=== PATIENT | male | born 1930 | race Two or more races ===

== ENCOUNTER 2017-01-09 15:04 | Inpatient (IN) | payer MEDICARE, BC ==
[~2017-01-09] VITALS: Ht 182.9 cm; Wt 83.1 kg
[~2017-01-09 15:04] MED LIST: HYDR-3326 PO; MAG355OR18 PO; METO25TA20 PO; ONDA4TAB5 PO; PANT40TA2 PO; SIMV5TAB2 GT; TYL2T GT; WARF1TAB47 GT; ZOLP5TAB2 PO
--- NOTE | 2017-01-09 15:08 | NUR ---
ALLY RONDON FROM [facility] C/O FEVER COUGH CONGESTION X 4 HOURS PATIENT REGISTRATION SUPERVISOR. PATIENT ALTERED, A/OX 1. TACHYPNIC, DIAPHORETIC, COOL TO TOUCH, FEVERE 104.3 RECTALLY. HYPOTENSIVE. NEW IV STARTED ON LAC, 18 G AND RFA, 18 G. BLOOD DRAWN AND SENT TO LAB. WILL CONTINUE TO MONITOR.
--- NOTE | 2017-01-09 15:30 | NUR ---
RT AT [facility] FOR SUCTION
[2017-01-09 15:34] LABS: BASOPHILS # (AUTO) 0.1 /CMM (0.0-0.2); BASOPHILS % (AUTO) 0.4 % (0.0-2.0); EOSINOPHILS % (AUTO) 0.1 % (0.0-6.0); HEMATOCRIT 48 % (39-51); HEMOGLOBIN 15.9 g/dL (13.5-17.5); LYMPHOCYTES # (AUTO) 0.5 /CMM (0.8-4.8); MEAN CORPUSCULAR HEMOGLOBIN 31 PG (26.0-33.0); MEAN CORPUSCULAR HGB CONC 33 g/dl (31.0-36.0); MEAN CORPUSCULAR VOLUME 91 fL (80-96); MONOCYTES # (AUTO) 0.7 /CMM (0.1-1.30); MONOCYTES % (AUTO) 5.2 % (2.0-12.0); NEUTROPHILS % (AUTO) 90.3 % (43.0-81.0); PLATELET COUNT (AUTO) 166 /CMM (150-450); RDW COEFFICIENT OF VARIATION 16.9 (11.5-15.0); RED BLOOD CELL COUNT(AUTO) 5.23 MIL/uL (4.5-6.0); WHITE BLOOD COUNT (AUTO) 13.3 K/uL (4.3-11.0)
[2017-01-09 15:48] LABS: INR 3.37 (0.87-1.13)
[2017-01-09] MEDS ORDERED: THIA100T13 GT (15:48)
[2017-01-09] MEDS ORDERED: MAG30ORA GT (15:48)
[2017-01-09] MEDS ORDERED: CIPR-262 PO (15:48)
[2017-01-09] MEDS ORDERED: LEVO100T9 PO (15:48)
[2017-01-09] MEDS ORDERED: SODI1TAB3 GT (15:48)
[2017-01-09] MEDS ORDERED: PANT40SU2 GT (15:48)
[2017-01-09] MEDS ORDERED: ACID1TAB12 GT (15:48)
[2017-01-09] MEDS ORDERED: AMIN30LI4 GT (15:48)
[2017-01-09] MEDS ORDERED: MAGN400O6 GT (15:48)
[2017-01-09] MEDS ORDERED: MEMA10TA GT (15:48)
[2017-01-09] MEDS ORDERED: MELA3TAB GT (15:48)
[2017-01-09] MEDS ORDERED: GUAI100S11 GT (15:48)
[2017-01-09] MEDS ORDERED: DILT30TA2 GT (15:48)
[2017-01-09] MEDS ORDERED: LOPE2CAP40 GT (15:48)
[2017-01-09] MEDS ORDERED: LACT-96 GT (15:48)
[2017-01-09] MEDS ORDERED: METO25TA20 GT (15:48)
[2017-01-09] MEDS ORDERED: CALC-108 GT (15:48)
[2017-01-09 15:50] LABS: ALANINE AMINOTRANSFERASE 20 U/L (12-78); ALBUMIN 2.4 g/dL (3.4-5.0); ALKALINE PHOSPHATASE 127 U/L (46-116); ASPARTATE AMINOTRANSFERASE 25 U/L (15-37); BILIRUBIN,DIRECT 0.7 mg/dL (0.0-0.2); BILIRUBIN,TOTAL 1.6 mg/dL (0.2-1.0); CALCIUM, SERUM 9.7 mg/dL (8.5-10.1); CARBON DIOXIDE 26 mmol/L (21-32); CHLORIDE 103 mmol/L (98-107); CREATININE 3.9 mg/dL (0.6-1.3); GLUCOSE 84 mg/dL (74-106); POTASSIUM 5.2 mmol/L (3.5-5.1); SODIUM SERUM 138 mmol/L (136-145); TOTAL PROTEIN, SERUM 7.6 g/dL (6.4-8.2)
[2017-01-09 15:52] LABS: TROPONIN I 0.186 ng/mL (0.00-0.056)
[2017-01-09 15:53] LABS: UREA NITROGEN, BLOOD 104 mg/dL (7-18)
--- NOTE | 2017-01-09 15:58 | NUR ---
PODIATRIST ASSISTANT AT BEDSIDE.
[2017-01-09] MEDS ORDERED: IV NS 0.9% 1,000 ML BAG IV ONE ×2 (16:00→17:00)
[2017-01-09] MEDS ORDERED: LEVOFLOXACIN 750 MG /D5W 150ML 150 ML IV ONE (16:30)
[2017-01-09] MEDS ORDERED: PIPERACILLIN /TAZOBACTAM 3.375 G in IV D5W 50 ML IV ONE (16:30)
[2017-01-09] MEDS ORDERED: ACETAMINOPHEN 650 MG/SUPP.RECT RC ONE ×2 (16:33→17:00)
--- NOTE | 2017-01-09 16:59 | NUR ---
CALLED PATIENTS DAUGHTER ON THE PHONE WITH DR YOUSSEF.
[2017-01-09] MEDS ORDERED: NOREPINEPHRINE 8 MG in IV D5W 500 ML IV ONE (17:00)
--- NOTE | 2017-01-09 17:45 | NUR ---
REPORT GIVEN TO EUNICE MORE FOR AQUILES UPON ADMISSION.
--- NOTE | 2017-01-09 18:05 | NUR ---
PATIENT TRANSPORTED TO [facility], 115-2 VIA ACLS PROTOCOL. RNEUNICE TO PROVIDE AQUILES.
--- NOTE | 2017-01-09 18:10 | NUR ---
RN [facility] INITIAL NOTE PATIENT PRESENT TO [facility] ON ER BED, TRANSFERRED SAFELY TO [facility] BED , PATIENT PLACED ON TELE MONITORING , READING A-FIB, PATIENT CURRENTLY ON 5L NASAL CANULA SATURATING AT 96% INITIAL VITALS TAKEN AND WITHIN NORMAL LIMITS PER CHARGE NURSE INITIAL INTAKE ASSESSMENT WILL BE PERFORMED BY PM RN , RN ORIENTED PATIENT AND FAMILY TO THE ROOM PATIENT APPEARS NON RESPONSIVE WITH SOUND HOWEVER PATIENT OPENS EYES TO TOUCH AND IS WITNESSED COUGHING WITHOUT SPUTUM. PATIENT IN BED B/P SLIGHTLY LOWER THAN EXPECTED HOWEVER PATIENT CURRENTLY HAS NO ORDERS , ADMITTING MD IS SERA PRAJAPATI , PM RN WILL FOLLOWUP ON DISCHARGE ORDERS PATIENT VITAL SIGNS ARE FOLLOWS : B/P 86/57 HR:102 O2: 97 ON 5 L NC TEMP 97.4 PATIENT HAS [address] CURRENTLY LEFT 18G AC AND RIGHT 18G FORE ARM , CLEAN DRY AND INTACT PATIENT IN BED RESTING COMFORTABLY WITH COUGHING NOTED PARTNER AT BEDSIDE
--- NOTE | 2017-01-09 19:50 | NUR ---
RN [facility] INITIAL NOTE PATIENT IN BED RESTING COMFORTABLY WITH COUGHING NOTED PARTNER AT BEDSIDE HOWEVER PATIENT CURRENTLY HAS NO ORDERS , ADMITTING MD IS SERA PRAJAPATI , PM RN WILL FOLLOWUP ON DISCHARGE ORDERS CONTINUATION OF CARE ENDORED TO PM RN PATIENT VITAL SIGNS ARE FOLLOWS : ALL LEVELS ENDORSED TO PM RN ALONG WITRH REPEAT LACTIC ACID AT 2.4 B/P 86/57 HR:102 O2: 97 ON 5 L NC TEMP 97.4 PATIENT HAS [address] CURRENTLY LEFT 18G AC AND RIGHT 18G FORE ARM , CLEAN DRY AND INTACT Addendum: 01/09/17 at 1951 by NAYELI RM RN CLOSING RN NOTE STATED ABOVE
[2017-01-09 20:00] VITALS: BP 122/46
[2017-01-09 20:11] LABS: D-DIMER 8.74 mg/L(FEU (0.17-0.50)
--- NOTE | 2017-01-09 20:30 | NUR ---
SOCK AND STOCKING IRONER DF PT RECEIVED TO ROOM 115-2 A NEW ADMIT FROM ER ADMITTED FOR SEPSIS.UTI,PNA. PT HAS HX OF DEMENTIA RESPONDS TO VERBAL/TACTILE,CONFUSED.(PER PT,S PARTNER AT BEDSIDE PT HAS SEVERE DEMENTIA UNABLE TO RECOGNIZE FAMILY MEMBERS AND NO LONGER ORIENTED TO SELF. VSS. PER PT,S PARTNER AND DPOA ON FILE DOCUMENTED BY ER MD YOUSSEF THEY HAVE ELECTED TO HAVE NO VASOPRESSOR SUPPORT TO SUPPORT BP ABOVE 90. PT CURRENTLY NORMOTENSIVE AT 122/46, AFIB CONTROLLED ON MONITOR. PT RECEIVED WITH NO ADMISSION ORDERS. I WAS INFORMED IN REPORT RUPA PRAJAPATI WILL ADMIT PT. RUPA PRAJAPATI INFORMED ME TO CALL DR ALEXIA RASMUSSEN . I SPOKE WITH DR HALE WHO HAS ATTEMPTED TO CONTACT DR You BRANCH. INSTRUCTED TO WAIT FOR JOSE CARLOS PÉREZ TO CALL BACK WITHIN 30 MINS. AWAITING CALL BACK.
[2017-01-09] MEDS: IV NS 0.9% 1,000 ML BAG IV PRN (21:00)
[2017-01-09] MEDS ORDERED: Medication Not On Formulary EA (Melatonin 3 MG) GT PRN (21:30)
[2017-01-09] MEDS ORDERED: MAG HYDROX/AL HYDROX/SIMETH 30 ML UDC GT PRN (21:30)
[2017-01-09] MEDS ORDERED: GUAIFENESIN 300 MG/15 ML UDC GT PRN (21:30)
[2017-01-09] MEDS ORDERED: MAGNESIUM HYDROXIDE 30 ML UDC GT PRN (21:30)
[2017-01-10] VITALS: BP 104/40
[2017-01-10 04:00] VITALS: BP 100/61
[2017-01-10] MEDS: IV NS 0.9% 1,000 ML BAG IV PRN ×2 (05:03→12:40)
--- NOTE | 2017-01-10 07:10 | NUR ---
RN NOTES RECEIVED PATIENT NON VERBAL , RESPONSIVE TO VERBAL STIMULI , DOESN'T FOLLOWS COMMANDS , NOT I NACUTE DISTRESS , RESPIRATIONS EVEN AND UNLABORED SPO2 OF 100% VIA 2LPM NC , AFIB 85 ON ASSOCIATE DIRECTOR DATA & ANALYTICS , GT PATENT AND INTACT CLAMPED WITH ABDOMINAL BINDER , FC DRAINING WELL VIA GRAVITY WITH LINDA COLORED URINE WITH SEDIMENTS , IV OF L AC # 18 PATENT AND INTAC WITH NS @ 125ML/HR INFUSING WELL , RFA # 20 PATENT AND INTACT SL , ALL NEEDS ATTENDED , BED ON LOW AND LOCKED POSITION , SIDE RAILS X2 ,CALL LIGHT WITHIN REACH , WILL CONTINUE TO MONITOR
[2017-01-10] MEDS ORDERED: ACETAMINOPHEN 650 MG/20.3 ML UDC GT PRN (07:30)
[2017-01-10] MEDS ORDERED: FIBERSOURCE HN 1,000 ML BOTTLE GT PRN (07:30)
[2017-01-10 07:32] LABS: HEMATOCRIT 42 % (39-51); HEMOGLOBIN 13.8 g/dL (13.5-17.5); LYMPHOCYTES # (AUTO) 1.5 /CMM (0.8-4.8); MEAN CORPUSCULAR HEMOGLOBIN 31 PG (26.0-33.0); MEAN CORPUSCULAR HGB CONC 33 g/dl (31.0-36.0); MEAN CORPUSCULAR VOLUME 94 fL (80-96); MONOCYTES # (AUTO) 0.9 /CMM (0.1-1.30); MONOCYTES % (AUTO) 4.9 % (2.0-12.0); NEUTROPHILS # (AUTO) 16.2 /CMM (1.8-8.9); NEUTROPHILS % (AUTO) 87.1 % (43.0-81.0); PLATELET COUNT (AUTO) 121 /CMM (150-450); RDW COEFFICIENT OF VARIATION 18.3 (11.5-15.0); RED BLOOD CELL COUNT(AUTO) 4.49 MIL/uL (4.5-6.0); WHITE BLOOD COUNT (AUTO) 18.6 K/uL (4.3-11.0)
[2017-01-10 07:40] LABS: TROPONIN I 0.148 ng/mL (0.00-0.056)
[2017-01-10 07:44] LABS: CALCIUM, SERUM 8.5 mg/dL (8.5-10.1); CARBON DIOXIDE 27 mmol/L (21-32); CHLORIDE 108 mmol/L (98-107); CREATININE 3.4 mg/dL (0.6-1.3); GLUCOSE 83 mg/dL (74-106); MAGNESIUM 2.3 mg/dL (1.8-2.4); PHOSPHORUS 3.9 mg/dL (2.5-4.9); SODIUM SERUM 142 mmol/L (136-145)
[2017-01-10 07:46] LABS: UREA NITROGEN, BLOOD 104 mg/dL (7-18)
[2017-01-10 07:50] LABS: POTASSIUM 6.2 mmol/L (3.5-5.1)
[2017-01-10 08:00] VITALS: BP 120/60
[2017-01-10] MEDS ORDERED: CIPROFLOXACIN HCL 500 MG TABLET GT SCH (09:00)
[2017-01-10] MEDS ORDERED: LOPERAMIDE HCL UDC(2 MG/10 ML) 2 MG/10 ML UDC GT PRN (09:00)
[2017-01-10] MEDS: PROSOURCE / PROSTAT (PYXIS) 30 ML UDC GT SCH ×2 (09:00→16:37)
[2017-01-10] MEDS: SODIUM CHLORIDE 1000 MG TABLET.SOL GT SCH ×3 (10:06→17:04)
[2017-01-10] MEDS: MEMANTINE HCL 5 MG TABLET GT SCH ×2 (10:06→16:57)
[2017-01-10] MEDS: ACIDOPHILUS/BULGARICUS 1 EACH TAB.CHEW GT SCH (10:06)
[2017-01-10] MEDS: CALCIUM CARB 250MG /VITAMIN D 1 UDTAB GT SCH (10:07)
[2017-01-10] MEDS: LEVOTHYROXINE SODIUM 100 MCG TABLET GT SCH (10:07)
[2017-01-10] MEDS: DILTIAZEM HCL 30 MG TABLET GT SCH ×3 (10:09→16:57)
[2017-01-10] MEDS: PANTOPRAZOLE 40 MG/PACK PACK GT SCH (10:09)
[2017-01-10] MEDS: THIAMINE HCL 100 MG TABLET GT SCH (10:10)
--- NOTE | 2017-01-10 10:25 | NUR ---
RN NOTES PROSTAT HELD DUE TO ELEVATED BUN (104) , WILL RESTART FEEDING OF FIBERSOURCE @65ML/HR X 24 HOURS PER DIETITIAN ,
[2017-01-10] MEDS: FIBERSOURCE HN 1,000 ML BOTTLE GT PRN (11:00)
[2017-01-10 11:11] LABS: INR 3.94 (0.87-1.13); PROTHROMBIN TIME 41.5 SECS (9.5-12.7)
[2017-01-10] MEDS ORDERED: SODIUM POLYSTYRENE SULFONATE 15 G/60 ML BOTTLE PO ONE (11:30)
--- NOTE | 2017-01-10 11:30 | NUR ---
RN NOTES SPOKE WITH DR BRANCH , DISCUSSED LABS , CURRENTLY ON IVF OF NS @ 125ML/HR , VERIFIED IF HE WANTS TO RESTART GT FEEDING OF FIBERSOURCE @ 65ML/HR PER DIETARY , PER MD START FEEDING PT , NOTIFIED PROSTAT WAS HELD DUE TO ELEVATED BUN , LACTIC OF 3.1 , AFEBRILE , V/S PHILIP , AWARE
[2017-01-10] MEDS ORDERED: FEE PK DOSING 1 MIN EA MC ONE (11:39)
[2017-01-10 12:00] VITALS: BP 114/66
[2017-01-10] MEDS ORDERED: VANCOMYCIN 1 GM in IV D5W 250 ML IV ONE (12:00)
[2017-01-10] MEDS: IV NS 0.9% 1,000 ML IV PRN ×2 (12:30→23:21)
[2017-01-10] MEDS: PIPERACILLIN /TAZOBACTAM 2.25 G in IV D5W 50 ML IV SCH ×3 (12:37→23:16)
--- NOTE | 2017-01-10 15:46 | NUR ---
RN NOTES NOTIFIED DR BRANCH REGARDING GASTRIC TUBE LEAK , NOTED WITH MODERATE AMOUNT OF FEEDING AROUND THE STOMACH , HELD GT FEEDING , AWAITING FOR ORDERS
[2017-01-10 16:00] VITALS: BP 146/65
--- NOTE | 2017-01-10 17:04 | NUR ---
RN NOTES SPOKE WITH PHARMACIST NOTIFIED REGARDING WRONG DOSE OF SODIUM CHLORIDE POWDER (1MG ) , PER PHARMACIST THEY WILL FIX THE RIGHT DOSING
--- NOTE | 2017-01-10 18:55 | NUR ---
RN NOTES SPOKE WITH ALFREDO , DISCUSSED LABS , PT STABLE , AFEBRILE BP WNL , NOTED WITH WATERY STOOL , S/P KAYEXELATE , PER OJSEPH SENT STOOL FOR C DIFF , VERIFIED THE ORDER PT RECEIVED KAYEXALETE PER COACH DRIVER STILL SEND IT , VERIFIED ALSO IF SHE WANTS TO DC THE OLD FC FROM THE FACILITY AND REPLACE WITH A NEW ONE , PER COACH DRIVER INSERT NEW FC . ORDERS CARRIED OUT
--- NOTE | 2017-01-10 19:05 | NUR ---
RN NOTE SPOKE WITH RITA GI WATER SANDER , DISCUSSED THAT PT HAS GT SITE LEAK , FLUIDS LEAKING LOOKS LIKE GASTRIC TUBE FEEDING , GT FEEDING HELD , PER WATER SANDER SHE WILL TAKE A LOOK AT IT
[2017-01-10 20:00] VITALS: BP 113/64
--- NOTE | 2017-01-10 20:34 | NUR ---
RN MS INITIAL NOTES RECEIVED PATIENT NON VERBAL , RESPONSIVE TO VERBAL STIMULI , DOESN'T FOLLOWS COMMANDS , NO SOB , RESPIRATIONS EVEN AND UNLABORED SPO2 OF 100% VIA 2LPM NC , GT PATENT AND INTACT CLAMPED WITH ABDOMINAL BINDER , FC DRAINING WELL VIA GRAVITY WITH LINDA COLORED URINE WITH SEDIMENTS , IV OF L AC # 18 PATENT AND INTACT WITH NS @ 125ML/HR INFUSING WELL , RFA # 20 PATENT AND INTACT SL , ALL NEEDS ATTENDED , BED ON LOW AND LOCKED POSITION , SIDE RAILS X2 ,CALL LIGHT WITHIN REACH , WILL CONTINUE TO MONITOR
[2017-01-10] MEDS: SIMVASTATIN 10 MG TABLET GT SCH (22:51)
[2017-01-11] VITALS: BP 123/64
[2017-01-11] MEDS: PIPERACILLIN /TAZOBACTAM 2.25 G in IV D5W 50 ML IV SCH ×3 (05:40→18:51)
[2017-01-11] MEDS ORDERED: VANCOMYCIN 500 MG in IV D5W 100 ML IV PRN (06:00)
--- NOTE | 2017-01-11 07:04 | NUR ---
RN MS CLOSING NOTES ENDORSED PATIENT NON VERBAL , RESPONSIVE TO VERBAL STIMULI , DOESN'T FOLLOWS COMMANDS , NO SOB , RESPIRATIONS EVEN AND UNLABORED SPO2 OF 100% VIA 2LPM NC , GTF RESUMED, WELL NESHA NO RESIDUAL , FC DRAINING WELL VIA GRAVITY WITH LINDA COLORED URINE WITH SEDIMENTS , IV OF L AC # 18 PATENT AND INTACT WITH NS @ 125ML/HR INFUSING WELL , RFA # 20 PATENT AND INTACT SL , ALL NEEDS ATTENDED , BED ON LOW AND LOCKED POSITION , SIDE RAILS X2 ,CALL LIGHT WITHIN REACH , WILL CONTINUE TO MONITOR.
[2017-01-11 07:18] LABS: BASOPHILS % (AUTO) 0.1 % (0.0-2.0); EOSINOPHILS # (AUTO) 0.3 /CMM (0.0-0.7); EOSINOPHILS % (AUTO) 2.2 % (0.0-6.0); HEMATOCRIT 42 % (39-51); HEMOGLOBIN 13.5 g/dL (13.5-17.5); LYMPHOCYTES # (AUTO) 0.6 /CMM (0.8-4.8); LYMPHOCYTES % (AUTO) 4.6 % (20.0-44.0); MEAN CORPUSCULAR HEMOGLOBIN 30 PG (26.0-33.0); MEAN CORPUSCULAR HGB CONC 33 g/dl (31.0-36.0); MEAN CORPUSCULAR VOLUME 94 fL (80-96); MONOCYTES # (AUTO) 0.7 /CMM (0.1-1.30); MONOCYTES % (AUTO) 5.1 % (2.0-12.0); NEUTROPHILS # (AUTO) 12.3 /CMM (1.8-8.9); PLATELET COUNT (AUTO) 106 /CMM (150-450); RDW COEFFICIENT OF VARIATION 18.5 (11.5-15.0); RED BLOOD CELL COUNT(AUTO) 4.46 MIL/uL (4.5-6.0); WHITE BLOOD COUNT (AUTO) 13.9 K/uL (4.3-11.0)
[2017-01-11 07:54] LABS: CALCIUM, SERUM 8.9 mg/dL (8.5-10.1); CARBON DIOXIDE 26 mmol/L (21-32); CHLORIDE 114 mmol/L (98-107); GLUCOSE 106 mg/dL (74-106); MAGNESIUM 2.3 mg/dL (1.8-2.4); POTASSIUM 4.3 mmol/L (3.5-5.1); SODIUM SERUM 151 mmol/L (136-145)
[2017-01-11 07:55] LABS: UREA NITROGEN, BLOOD 100 mg/dL (7-18)
[2017-01-11 08:00] VITALS: BP 129/94
[2017-01-11] MEDS: LEVOTHYROXINE SODIUM 100 MCG TABLET GT SCH (09:41)
[2017-01-11] MEDS: ACIDOPHILUS/BULGARICUS 1 EACH TAB.CHEW GT SCH (09:41)
[2017-01-11] MEDS: SODIUM CHLORIDE 1000 MG TABLET.SOL GT SCH ×3 (09:41→17:00)
[2017-01-11] MEDS: CALCIUM CARB 250MG /VITAMIN D 1 UDTAB GT SCH (09:42)
[2017-01-11] MEDS: THIAMINE HCL 100 MG TABLET GT SCH (09:42)
[2017-01-11] MEDS: PROSOURCE / PROSTAT (PYXIS) 30 ML UDC GT SCH ×2 (09:42→17:00)
[2017-01-11] MEDS: PANTOPRAZOLE 40 MG/PACK PACK GT SCH (09:42)
[2017-01-11] MEDS: DILTIAZEM HCL 30 MG TABLET GT SCH ×3 (09:42→18:49)
[2017-01-11] MEDS: MEMANTINE HCL 5 MG TABLET GT SCH ×2 (09:42→18:49)
[2017-01-11] MEDS: IV D5W 1,000 ML IV PRN (12:40)
[2017-01-11 16:00] VITALS: BP 131/76
[2017-01-11] MEDS ORDERED: Z GUARD REMEDY 2 OZ OINT TP PRN (17:30)
--- NOTE | 2017-01-11 19:00 | NUR ---
RN NOTE PT REMAINED STABLE DURING THE DAY SHIFT, ALL NEEDS MET, MEDS GIVEN ORDERED, ORAL SUCTION PERFORMED SEVERAL TIME THROUGHOUT THE SHIFT. SAFETY MEASURES IMPLEMENTED, KEPT CLEAN AND DRY. WILL ENDORSE TO MEDICAL LIAISON FOR AQUILES.
[2017-01-11 20:00] VITALS: BP 138/68
[2017-01-11] MEDS: SIMVASTATIN 10 MG TABLET GT SCH (21:50)
[2017-01-12] MEDS: PIPERACILLIN /TAZOBACTAM 2.25 G in IV D5W 50 ML IV SCH ×5 (00:06→23:23)
[2017-01-12] MEDS: IV D5W 1,000 ML IV PRN ×2 (00:26→15:21)
[2017-01-12 04:00] VITALS: BP 151/99
[2017-01-12] MEDS: FIBERSOURCE HN 1,000 ML BOTTLE GT PRN ×2 (06:32→23:27)
--- NOTE | 2017-01-12 06:45 | NUR ---
WAREHOUSE SUPERVISOR 3RD SHIFT -PT.ON O2/3L/NC. PT. HAD BUCKLE COVERER COURSE CONGESTED COUGH. CANNOT SX W/ASIA. RT AT BS. SUGGESTED CPT. NO CHANGES FROM PREVIOUS ASSESS 0- MENTS. ENDORSED TO DAYSHIFT RN. FIBERSOURCE INFUSING AT 65CC/HR. CONT. POC.
[2017-01-12 07:27] LABS: EOSINOPHILS # (AUTO) 0.3 /CMM (0.0-0.7); EOSINOPHILS % (AUTO) 3.3 % (0.0-6.0); HEMATOCRIT 44 % (39-51); HEMOGLOBIN 13.9 g/dL (13.5-17.5); LYMPHOCYTES # (AUTO) 0.9 /CMM (0.8-4.8); LYMPHOCYTES % (AUTO) 9.8 % (20.0-44.0); MEAN CORPUSCULAR HEMOGLOBIN 30 PG (26.0-33.0); MEAN CORPUSCULAR HGB CONC 32 g/dl (31.0-36.0); MEAN CORPUSCULAR VOLUME 93 fL (80-96); MONOCYTES # (AUTO) 0.5 /CMM (0.1-1.30); MONOCYTES % (AUTO) 5.5 % (2.0-12.0); NEUTROPHILS # (AUTO) 7.6 /CMM (1.8-8.9); NEUTROPHILS % (AUTO) 81.4 % (43.0-81.0); PLATELET COUNT (AUTO) 121 /CMM (150-450); RDW COEFFICIENT OF VARIATION 18.5 (11.5-15.0); RED BLOOD CELL COUNT(AUTO) 4.66 MIL/uL (4.5-6.0); WHITE BLOOD COUNT (AUTO) 9.3 K/uL (4.3-11.0)
[2017-01-12 07:57] LABS: CALCIUM, SERUM 9.1 mg/dL (8.5-10.1); CARBON DIOXIDE 25 mmol/L (21-32); CHLORIDE 115 mmol/L (98-107); CREATININE 2.4 mg/dL (0.6-1.3); GLUCOSE 110 mg/dL (74-106); PHOSPHORUS 3.9 mg/dL (2.5-4.9); SODIUM SERUM 151 mmol/L (136-145)
[2017-01-12 08:00] VITALS: BP 146/92
[2017-01-12 08:01] LABS: UREA NITROGEN, BLOOD 89 mg/dL (7-18)
[2017-01-12] MEDS: ACIDOPHILUS/BULGARICUS 1 EACH TAB.CHEW GT SCH (08:58)
[2017-01-12] MEDS: MEMANTINE HCL 5 MG TABLET GT SCH ×2 (08:58→17:21)
[2017-01-12] MEDS: PROSOURCE / PROSTAT (PYXIS) 30 ML UDC GT SCH ×2 (08:58→17:20)
[2017-01-12] MEDS: LEVOTHYROXINE SODIUM 100 MCG TABLET GT SCH (08:58)
[2017-01-12] MEDS: PANTOPRAZOLE 40 MG/PACK PACK GT SCH (08:59)
[2017-01-12] MEDS: THIAMINE HCL 100 MG TABLET GT SCH (08:59)
[2017-01-12] MEDS: CALCIUM CARB 250MG /VITAMIN D 1 UDTAB GT SCH (08:59)
[2017-01-12] MEDS: DILTIAZEM HCL 30 MG TABLET GT SCH ×3 (08:59→17:21)
[2017-01-12] MEDS: SODIUM CHLORIDE 1000 MG TABLET.SOL GT SCH (08:59)
[2017-01-12 09:20] LABS: PROTHROMBIN TIME 63.5 SECS (9.5-12.7)
[2017-01-12] MEDS ORDERED: VANCOMYCIN 1 GM in IV D5W 250 ML IV SCH ×3 (12:00)
[2017-01-12] MEDS ORDERED: PHYTONADIONE 5 MG TABLET PO ONE (13:00)
[2017-01-12] MEDS ORDERED: ASPIRIN 81 MG TAB.CHEW ONE (14:21)
[2017-01-12] MEDS ORDERED: NITROGLYCERIN PACKET 1 GM PACKET ONE (14:21)
[2017-01-12] MEDS: GUAIFENESIN 300 MG/15 ML UDC GT PRN (15:20)
[2017-01-12 16:00] VITALS: BP_SYST 135; BP_SYST 140; BP_DIAS 74; BP_DIAS 81
--- NOTE | 2017-01-12 19:00 | NUR ---
RN NOTE PT REMAINED STABLE, NEEDS MET, INR REPORTED TO DR BRANCH AND HE ORDERED MEDICATION TO REVERSE, PT HAS PENIS AND SCROTAL EDEMA, MD AWARE. ALL NEEDS MET, KEPT CLEAN AND DRY, SAFETY MAINTAINED, TOLERATES GTUBE FEEDING WELL. COUGHS PRODUCTIVE, PT SUCTIONED PRN AND ORAL CARE PROVIDED.
--- NOTE | 2017-01-12 20:00 | NUR ---
MS RN NOTE PT IN BED AWAKE. A/O X 1 CONFUSED, NON VERBAL. NO DISTRESS OR DISCOMFORT NOTED. NO S/S OF PAIN NOTED. GTF FIBERSOURCE INFUSING AT 65 ML/HR, 0 ML RESIDUAL NOTED. F/C INTACT AND PATENT DRAINING YELLOWISH COLOR URINE. IVF D5W INFUSING WELL, RFA #20, NO S/S OF INFILTRATION NOTED. H/L LAC #18 G INTACT AND PATENT. REPOSITION HIM FOR SKIN MANAGEMENT AND COMFORT. WILL DO Q2H REPOSITIONING. SIDE RAILS UP X 3 AND CALL LIGHT WITHIN REACH. VSS. CONTINUE TO MONITOR HIM.
[2017-01-12] MEDS: SIMVASTATIN 10 MG TABLET GT SCH (22:01)
[2017-01-13] MEDS: GUAIFENESIN 300 MG/15 ML UDC GT PRN (02:32)
--- NOTE | 2017-01-13 02:44 | NUR ---
MS RN NOTE PT CONSTANTLY COUGHING SUCTIONED HIM FRQUENTLY, ROBITUSSIN 100 MG VIA GT GIVEN.
[2017-01-13] MEDS: IV D5W 1,000 ML IV PRN (03:51)
[2017-01-13 04:00] VITALS: BP 156/68
[2017-01-13] MEDS: PIPERACILLIN /TAZOBACTAM 2.25 G in IV D5W 50 ML IV SCH ×3 (05:41→17:16)
--- NOTE | 2017-01-13 06:34 | NUR ---
MS 1 RN NOTE NO CHANGE IN PT CONDITION. IVF INFUSING WELL, NO S/S OF INFILTRATION NOTED. GTF INFUSING WELL, 0 ML RESIDUAL NOTED. SIDE RAILS UP X 2 AND CALL LIGHT WITHIN REACH. WILL ENDORSE TO DAY SHIFT NURSE FOR CONTINUE TO CARE.
[2017-01-13 07:03] LABS: BASOPHILS % (AUTO) 0.3 % (0.0-2.0); EOSINOPHILS # (AUTO) 0.4 /CMM (0.0-0.7); EOSINOPHILS % (AUTO) 4.1 % (0.0-6.0); HEMATOCRIT 41 % (39-51); HEMOGLOBIN 13.3 g/dL (13.5-17.5); LYMPHOCYTES # (AUTO) 0.9 /CMM (0.8-4.8); MEAN CORPUSCULAR HEMOGLOBIN 30 PG (26.0-33.0); MEAN CORPUSCULAR HGB CONC 32 g/dl (31.0-36.0); MEAN CORPUSCULAR VOLUME 92 fL (80-96); MONOCYTES # (AUTO) 0.8 /CMM (0.1-1.30); MONOCYTES % (AUTO) 8.3 % (2.0-12.0); NEUTROPHILS # (AUTO) 7.1 /CMM (1.8-8.9); NEUTROPHILS % (AUTO) 77.3 % (43.0-81.0); PLATELET COUNT (AUTO) 104 /CMM (150-450); RDW COEFFICIENT OF VARIATION 17.7 (11.5-15.0); RED BLOOD CELL COUNT(AUTO) 4.48 MIL/uL (4.5-6.0); WHITE BLOOD COUNT (AUTO) 9.2 K/uL (4.3-11.0)
--- NOTE | 2017-01-13 07:20 | NUR ---
RN OPENING NOTES RECV'D REPORT FROM NOC RN. AWAKE NON VERBAL. RUSSO YELLOW URINE GOOD OUTPUT. FIBERSOURCE GTUBE 65ML/HR LAC 18g SL. RFA 18G D5W @100ML/HR. RECEIVING ZOSYN FOR UTI POS URINE CULT 01/09. BED IN LOW LOCKED POSITION. SIDE RAILS X 2 . CALL LIGHT IN REACH. WILL CONT TO MONITOR CLOSELY.
[2017-01-13 07:24] LABS: CALCIUM, SERUM 8.2 mg/dL (8.5-10.1); CARBON DIOXIDE 26 mmol/L (21-32); CHLORIDE 109 mmol/L (98-107); GLUCOSE 120 mg/dL (74-106); INR 2.09 (0.87-1.13); MAGNESIUM 1.7 mg/dL (1.8-2.4); POTASSIUM 4.2 mmol/L (3.5-5.1); PROTHROMBIN TIME 21.9 SECS (9.5-12.7); SODIUM SERUM 143 mmol/L (136-145); UREA NITROGEN, BLOOD 70 mg/dL (7-18)
--- NOTE | 2017-01-13 07:45 | NUR ---
WOUND CARE CONSULT: PT FOLLOWED BY SURGICAL TEAM FOR WOUND/SKIN ISSUES. DEFER TO SURGICAL TEAM FOR WOUND TREATMENT PLAN. PT HAS CURRENT ALCIRA SCORE OF 11. FIRST STEP MATTRESS ORDERED. ALL SKIN PROTECTION MEASURES IN PLACE AND DISCUSSED WITH NURSING STAFF. WILL SEE PRN. ROWLEY IN AGREEMENT WITH PLAN OF CARE.
[2017-01-13 08:00] VITALS: BP 139/81
[2017-01-13] MEDS: ACIDOPHILUS/BULGARICUS 1 EACH TAB.CHEW GT SCH (09:25)
[2017-01-13] MEDS: CALCIUM CARB 250MG /VITAMIN D 1 UDTAB GT SCH (09:26)
[2017-01-13] MEDS: PANTOPRAZOLE 40 MG/PACK PACK GT SCH (09:26)
[2017-01-13] MEDS: THIAMINE HCL 100 MG TABLET GT SCH (09:26)
[2017-01-13] MEDS: MEMANTINE HCL 5 MG TABLET GT SCH ×2 (09:26→17:12)
[2017-01-13] MEDS: LEVOTHYROXINE SODIUM 100 MCG TABLET GT SCH (09:27)
[2017-01-13] MEDS: DILTIAZEM HCL 30 MG TABLET GT SCH ×3 (09:27→17:12)
[2017-01-13] MEDS: PROSOURCE / PROSTAT (PYXIS) 30 ML UDC GT SCH ×2 (09:27→17:12)
[2017-01-13] MEDS ORDERED: Magnesium 1GM/D5W 100ML PREMIX 100 ML IV SCH (11:30)
[2017-01-13] MEDS: FIBERSOURCE HN 1,000 ML BOTTLE GT PRN (15:39)
[2017-01-13 16:00] VITALS: BP 119/69
[2017-01-13 16:56] LABS: ABG OXYGEN SATURATION 91.9 % (92.0-98.5); ABG PCO2 34.7 mmHg (35.0-45.0); ABG PH 7.463 (7.350-7.450); ABG PO2 58.9 mmHg (75.0-100.0); AaDO2 49.3 mmHg; COHb 1.6 % (0.5-1.5); MetHb 0.6 % (0.0-1.5); O2Hb 89.9 % (94.0-97.0); SITE, ABG Left Radial; VENT MODE, BG RA
[2017-01-13] MEDS: IPRATROPIUM NEB FS 0.5 MG/2.5 ML AMPUL.NEB NEB SCH ×2 (17:09→19:58)
--- NOTE | 2017-01-13 17:52 | NUR ---
RN CLOSINGN NOTES PT COUGHING NON PRODUCTIVE DEEP SUCTION BY RT RESULTED IN MODERATE TENACIOUS SECRETIONS SUCTIONED. ABG MILDLY ABNORMAL. HOB ELEVATED. TUBE FEED 65 ML/ HR. RFA 18G INFUSING D5W @100ML/HR. PARTNER AT BEDSIDE ANSWERED QUESTIONS. CALL LIGHT IN REACH. BED IN LOW LOCKED POSITION. WILL ENDORSE TO NOC RN.
[2017-01-13 18:41] VITALS: BP 136/79
[2017-01-13 20:00] VITALS: BP_SYST 134; BP_SYST 136; BP_DIAS 82; BP_DIAS 83
[2017-01-13] MEDS: SIMVASTATIN 10 MG TABLET GT SCH (22:00)
--- NOTE | 2017-01-13 22:05 | NUR ---
GAIL/JORDAN WHILE BATHING PT. PT GRABBED HIS GTUBE AND PULLED IT OUT WITH BALLOON INFLATED. DRESSING WAS PLACED OVER STOMA AND WAS PAGED. AWAITING CALL BACK. Addendum: 01/13/17 at 2245 by SYED REVELES LVN DR. JACQUIE PATRICK
--- NOTE | 2017-01-13 22:06 | NUR ---
MED NOTE: 2200 MEDS HELD. PT PULLED OUT HIS GTUBE.
--- NOTE | 2017-01-13 23:49 | NUR ---
MS-1/CRAWLER DRAGLINE OPERATOR DR. DHILLON CALLED BACK, UPDATED TO CURRENT STATUS OF PT. INFORMED TO TO HAVE MORNING SHIFT FOLLOW UP WITH PRIMARY FOR FURTHER ORDERS REGARDING PULLED OUT GTUBE.
--- NOTE | 2017-01-14 00:40 | NUR ---
MS-1/JORDAN DINERO PULLED OUT AT THIS TIME. PT ON IVF. Addendum: 01/14/17 at 0041 by SYED REVELES LVN Amended: Links added.
[2017-01-14] MEDS: PIPERACILLIN /TAZOBACTAM 2.25 G in IV D5W 50 ML IV SCH ×3 (00:50→12:53)
[2017-01-14] MEDS: IPRATROPIUM NEB FS 0.5 MG/2.5 ML AMPUL.NEB NEB SCH ×4 (02:08→19:40)
[2017-01-14 04:00] VITALS: BP 137/84
[2017-01-14] MEDS: IV D5W 1,000 ML IV PRN (04:05)
--- NOTE | 2017-01-14 06:47 | NUR ---
MS-1/SLITTER SERVICE AND SETTER PT RESTING IN BED. NO SOB, DISTRESS OR PAIN NOTED. WILL ENDORSE TO DAYSHIFT TO FOLLOW UP WITH GTUBE ORDERS.
[2017-01-14] MEDS: LEVOTHYROXINE SODIUM 100 MCG TABLET GT SCH (07:30)
--- NOTE | 2017-01-14 07:35 | NUR ---
MS RN OPENING RECEIVED PATIENT SLEEPING AWAKE TO DEEP TOUCH. PATIENT OPENS EYES AT THIS TIME BUT NO RESPONSE. AT THIS TIME NO S/S PAIN, SOB, DIFFICULTY BREATHING OR PAIN. PER REPORT PATIENT PULLED OUT G TUBE AT MIDNIGHT AND SITE NO LONGER ABLE TO HAVE RUSSO IN PLACE TO KEEP OPEN. SITE IS COVERED WITH DRESSING AT THIS TIME. WILL F/U WITH MD FOR GI EVAL FOR REINSERTION. BED LOWERED AND LOCKED, RAILS UPX3 FOR SAFETY AND WILL ROUND Q2H OR LESS PER NEEDS. BED ALARM ON. HOB ELEVATED.
[2017-01-14 08:00] VITALS: BP 124/68
[2017-01-14 08:00] LABS: CALCIUM, SERUM 8.1 mg/dL (8.5-10.1); CREATININE 1.8 mg/dL (0.6-1.3); GLUCOSE 89 mg/dL (74-106); MAGNESIUM 1.9 mg/dL (1.8-2.4); UREA NITROGEN, BLOOD 57 mg/dL (7-18)
[2017-01-14 08:13] LABS: CARBON DIOXIDE 25 mmol/L (21-32); CHLORIDE 106 mmol/L (98-107); SODIUM SERUM 140 mmol/L (136-145)
[2017-01-14] MEDS: THIAMINE HCL 100 MG TABLET GT SCH (09:00)
[2017-01-14] MEDS: MEMANTINE HCL 5 MG TABLET GT SCH ×2 (09:00→16:10)
[2017-01-14] MEDS: DILTIAZEM HCL 30 MG TABLET GT SCH ×3 (09:00→16:10)
[2017-01-14] MEDS: CALCIUM CARB 250MG /VITAMIN D 1 UDTAB GT SCH (09:00)
[2017-01-14] MEDS: ACIDOPHILUS/BULGARICUS 1 EACH TAB.CHEW GT SCH (09:00)
[2017-01-14] MEDS: PROSOURCE / PROSTAT (PYXIS) 30 ML UDC GT SCH ×2 (09:00→16:10)
[2017-01-14] MEDS: PANTOPRAZOLE 40 MG/PACK PACK GT SCH (09:00)
--- NOTE | 2017-01-14 09:00 | NUR ---
MS RN NOTES PICTURES UPDATED ON PATIENT SKIN. SKIN CARE COMPLETED.
--- NOTE | 2017-01-14 11:49 | NUR ---
MS RN NOTES ACTIVE DIRECTORY ENGINEER RITA FOR DR HERNANDEZ AT BEDSIDE. AWARE PATIENT PULLED OUT G TUBE. NO NEW ORDERS AT THIS TIME
[2017-01-14 16:00] VITALS: BP 147/96
[2017-01-14] MEDS: CEFEPIME 1 GM in IV D5W 50 ML IV SCH (18:50)
--- NOTE | 2017-01-14 18:58 | NUR ---
MS RN CLOSING PATIENT STABLE. SKIN CARE COMPLETED. ALL NEEDS ASSESSED AND MET. BED LOWERED AND LOCKED, RAILS UPX3 FOR SAFETY AND WILL ENDORSE CARE TO RN FOR AQUILES
[2017-01-14 20:00] VITALS: BP 143/89
[2017-01-14] MEDS: SIMVASTATIN 10 MG TABLET GT SCH ×2 (21:39→22:00)
[2017-01-15] MEDS: IV D5W 1,000 ML IV PRN ×2 (00:47→14:20)
[2017-01-15] MEDS: IPRATROPIUM NEB FS 0.5 MG/2.5 ML AMPUL.NEB NEB SCH ×4 (01:12→19:38)
[2017-01-15 04:00] VITALS: BP 142/89
--- NOTE | 2017-01-15 07:00 | NUR ---
RN NOTES PT IN OR AT THIS TIME .
[2017-01-15 07:17] LABS: BASOPHILS % (AUTO) 0.1 % (0.0-2.0); EOSINOPHILS # (AUTO) 0.6 /CMM (0.0-0.7); EOSINOPHILS % (AUTO) 6.5 % (0.0-6.0); HEMATOCRIT 39 % (39-51); HEMOGLOBIN 12.4 g/dL (13.5-17.5); LYMPHOCYTES # (AUTO) 1.4 /CMM (0.8-4.8); LYMPHOCYTES % (AUTO) 13.6 % (20.0-44.0); MEAN CORPUSCULAR HEMOGLOBIN 30 PG (26.0-33.0); MEAN CORPUSCULAR HGB CONC 32 g/dl (31.0-36.0); MEAN CORPUSCULAR VOLUME 93 fL (80-96); MONOCYTES # (AUTO) 0.8 /CMM (0.1-1.30); MONOCYTES % (AUTO) 7.8 % (2.0-12.0); NEUTROPHILS # (AUTO) 7.2 /CMM (1.8-8.9); PLATELET COUNT (AUTO) 127 /CMM (150-450); RDW COEFFICIENT OF VARIATION 17.3 (11.5-15.0); RED BLOOD CELL COUNT(AUTO) 4.17 MIL/uL (4.5-6.0); WHITE BLOOD COUNT (AUTO) 9.9 K/uL (4.3-11.0)
[2017-01-15 07:39] LABS: ALANINE AMINOTRANSFERASE 22 U/L (12-78); ALBUMIN 1.8 g/dL (3.4-5.0); ALKALINE PHOSPHATASE 58 U/L (46-116); ASPARTATE AMINOTRANSFERASE 24 U/L (15-37); BILIRUBIN,TOTAL 2.3 mg/dL (0.2-1.0); CALCIUM, SERUM 8.3 mg/dL (8.5-10.1); CARBON DIOXIDE 24 mmol/L (21-32); CHLORIDE 106 mmol/L (98-107); CREATININE 1.7 mg/dL (0.6-1.3); GLUCOSE 89 mg/dL (74-106); MAGNESIUM 1.7 mg/dL (1.8-2.4); PHOSPHORUS 2.8 mg/dL (2.5-4.9); POTASSIUM 4.1 mmol/L (3.5-5.1); SODIUM SERUM 140 mmol/L (136-145); TOTAL PROTEIN, SERUM 6.2 g/dL (6.4-8.2); UREA NITROGEN, BLOOD 46 mg/dL (7-18)
[2017-01-15 08:00] VITALS: BP 148/76
[2017-01-15 08:30] VITALS: BP 148/76
--- NOTE | 2017-01-15 08:30 | NUR ---
RN NOTES RECEIVED PT FORM OR IN ROOM 115-2, A/Ox1, RESPIRATION EVEN AND UNLABORED, ON O2 2L N/C , O2 SA 965, , G TUBE SITE CDI, ABDOMINAL BINDER IN PLACED, RUSSO DRAINING TO GRAVITY WITH YELLOW CLEAR URINE, D5 W AT 100CC/HR RUNNING VIA L ARM IV SITE, PT NPO AT THIS TIME , SR UP x3, CALL LIGHT WITHIN EASY REACH, BED LOCKED AND IN LOWEST PORTION , CONTINUE TO MONITOR PT CLSOELY ,
[2017-01-15] MEDS: THIAMINE HCL 100 MG TABLET GT SCH (08:42)
[2017-01-15] MEDS: MEMANTINE HCL 5 MG TABLET GT SCH ×2 (08:43→16:34)
[2017-01-15] MEDS: LEVOTHYROXINE SODIUM 100 MCG TABLET GT SCH (08:43)
[2017-01-15] MEDS: ACIDOPHILUS/BULGARICUS 1 EACH TAB.CHEW GT SCH (08:43)
[2017-01-15] MEDS: PANTOPRAZOLE 40 MG/PACK PACK GT SCH (08:43)
[2017-01-15] MEDS: DILTIAZEM HCL 30 MG TABLET GT SCH ×3 (08:51→16:34)
[2017-01-15] MEDS: PROSOURCE / PROSTAT (PYXIS) 30 ML UDC GT SCH ×2 (08:54→16:34)
[2017-01-15] MEDS: CALCIUM CARB 250MG /VITAMIN D 1 UDTAB GT SCH (08:54)
[2017-01-15] MEDS ORDERED: Magnesium 1GM/D5W 100ML PREMIX 100 ML IV SCH (10:44)
--- NOTE | 2017-01-15 12:00 | NUR ---
RN NOTES GT SITE CDI, VSS STABLE , NO DISTRESS NOTED .
--- NOTE | 2017-01-15 15:00 | NUR ---
RN NOTES REPORT GIVEN TO SNF , PT STABLE , NO DISTRESS NOTED
[2017-01-15 16:00] VITALS: BP 121/65
[2017-01-15] MEDS: CEFEPIME 1 GM in IV D5W 50 ML IV SCH (16:32)
[2017-01-15] MEDS: FIBERSOURCE HN 1,000 ML BOTTLE GT PRN (16:33)
[2017-01-15 16:34] VITALS: BP 121/65
--- NOTE | 2017-01-15 18:49 | NUR ---
RN NOTES TOLERATING TF AT 65CC/HR WELL , RESPIRATION EVEN AND UNLABORED, ON O2 2L N/C , NO SOB NOTED, WAITING FOR AMBULANCE TO BE DISCHARGE TO SNF AT 8PM, WILL ENDORSE TO ACCOUNTS COLLECTOR NURSE CRYSTAL KWAN .
--- NOTE | 2017-01-15 20:45 | NUR ---
RN NOTE PT REMAINS IN NO ACUTE DISTRESS IN BED. PT DID NOT HAVE ANY SIGNIFICANT CHANGE IN CONDITION DURING SHIFT. ALL NEEDS MET, ALL ORDERS CARRIED OUT. PT LEFT WITH EMS IN STABLE CONDITION. PT LEFT HOSPITAL BY AMBULANCE TO [facility].
== END 2017-01-15 20:45 | DRG 871 ==
LOC: ER 15:11 → TELE1 16:47 → TELE-TD 18:22 → MEDSG1 01-10 11:22
PROVIDERS: ADMIT Internal Medicine Nephrology; ATTEND Internal Medicine Nephrology
PROC: 0DH63UZ Insertion of Feeding Device into Stomach, Percutaneous Approach (ICD-10-PCS; principal; 2017-01-15 08:15)
DX: A41.51 Sepsis due to Escherichia coli [E. coli] (principal); I21.4 Non-ST elevation (NSTEMI) myocardial infarction; J69.0 Pneumonitis due to inhalation of food and vomit; R65.21 Severe sepsis with septic shock; G93.40 Encephalopathy, unspecified; K31.6 Fistula of stomach and duodenum; N17.9 Acute kidney failure, unspecified; N18.6 End stage renal disease; I12.0 Hypertensive chronic kidney disease with stage 5 chronic kidney disease or end stage renal disease; N39.0 Urinary tract infection, site not specified; Z43.1 Encounter for attention to gastrostomy; R13.10 Dysphagia, unspecified; E87.5 Hyperkalemia; D64.9 Anemia, unspecified; E03.9 Hypothyroidism, unspecified; E78.5 Hyperlipidemia, unspecified; F03.90 Unspecified dementia, unspecified severity, without behavioral disturbance, psychotic disturbance, mood disturbance, and anxiety; I48.91 Unspecified atrial fibrillation; K21.9 Gastro-esophageal reflux disease without esophagitis; Z66 Do not resuscitate; L98.8 Other specified disorders of the skin and subcutaneous tissue; Z79.899 Other long term (current) drug therapy; Z79.01 Long term (current) use of anticoagulants
CPT/HCPCS: 36415; 36600; 43246; 71010-TC; 80048-TC; 80053-TC; 80076-TC; 80202-TC; 82803-TC; 83605-TC; 83735-TC; 84100-TC; 84484-TC; 85025-TC; 85378-TC; 85385-TC; 85610-TC; 85730-TC; 87040-TC; 87081-TC; 87086-TC; 87186-TC; 87400; 93307-TC; A4606; A6402; J0692; J1956; J2543; J3370; J3475; J3490; J7030; J7040; J7042; J7060; J7070; Z7610